=== PATIENT | male | born 1990 | race African-American/Black ===

== ENCOUNTER 2022-06-01 12:49 | Emergency (ER) | payer OTHER, BC ==
[2022-06-01 13:35] VITALS: BP 123/74; PULSE 63; RESP 18; TEMP 98.3; BMI 27.3
[2022-06-01] MEDS ORDERED: ACETAMINOPHEN 325 MG TABLET (FP) PO ONE (14:25)
[2022-06-01] MEDS ORDERED: ACETAMINOPHEN 325 MG TABLET (FP) ONE (15:00)
== END 2022-06-01 15:21 | disposition home or self-care (01) ==
LOC: JERFT 12:49
DX: S39.012A Strain of muscle, fascia and tendon of lower back, initial encounter (principal); S80.211A Abrasion, right knee, initial encounter; S09.90XA Unspecified injury of head, initial encounter; W01.0XXA Fall on same level from slipping, tripping and stumbling without subsequent striking against object, initial encounter
CPT/HCPCS: 99283-25